=== PATIENT | male | born 2000 | race Caucasian/White ===

== ENCOUNTER 2021-10-29 18:55 | Emergency (ER) | payer BC, OTHER ==
[~2021-10-29] VITALS: Ht 185.4 cm; Wt 90.9 kg
[2021-10-29 19:06] VITALS: BP 117/83; TEMP 97.8
[2021-10-29 20:55] VITALS: PULSE 58
== END 2021-10-29 20:55 | disposition home or self-care (01) ==
LOC: COL.ER 18:55
DX: S93.401A Sprain of unspecified ligament of right ankle, initial encounter (principal); X50.1XXA Overexertion from prolonged static or awkward postures, initial encounter; Y93.67 Activity, basketball